=== PATIENT | female | born 1990 | race Caucasian/White ===

== ENCOUNTER 2018-02-05 08:48 | Emergency (ER) | payer SELFPAY ==
[~2018-02-05] VITALS: Ht 152.4 cm; Wt 70.8 kg
[2018-02-05 08:52] VITALS: BP 117/74
== END 2018-02-05 09:35 | disposition home or self-care (01) ==
LOC: ED 08:48
DX: J02.9 Acute pharyngitis, unspecified (principal); J98.01 Acute bronchospasm

== ENCOUNTER 2018-07-20 18:26 | Emergency (ER) | payer MEDICAID ==
[~2018-07-20] VITALS: Ht 152.4 cm; Wt 72.6 kg
[2018-07-20 18:34] VITALS: Ht 152.4 cm; Wt 72.6 kg
== END 2018-07-20 19:16 | disposition left against medical advice (07) ==
LOC: ED 18:26
DX: Z53.21 Procedure and treatment not carried out due to patient leaving prior to being seen by health care provider (principal)

== ENCOUNTER 2018-07-23 18:48 | Emergency (ER) | payer MEDICAID ==
[~2018-07-23] VITALS: Ht 152.4 cm; Wt 73.0 kg
[2018-07-23 19:25] VITALS: BP 131/79; Ht 152.4 cm; Wt 73.0 kg
== END 2018-07-23 20:44 | disposition home or self-care (01) ==
LOC: ED 18:48
DX: T78.40XA Allergy, unspecified, initial encounter (principal); X58.XXXA Exposure to other specified factors, initial encounter

== ENCOUNTER 2018-08-03 11:36 | Emergency (ER) | payer MEDICAID ==
[~2018-08-03] VITALS: Ht 152.4 cm; Wt 73.9 kg
[2018-08-03 12:12] VITALS: BP 125/80; Ht 152.4 cm; Wt 73.9 kg
== END 2018-08-03 13:09 | disposition home or self-care (01) ==
LOC: ED 11:36
DX: S80.861A Insect bite (nonvenomous), right lower leg, initial encounter (principal); L08.9 Local infection of the skin and subcutaneous tissue, unspecified; W57.XXXA Bitten or stung by nonvenomous insect and other nonvenomous arthropods, initial encounter; Y93.89 Activity, other specified; Y92.89 Other specified places as the place of occurrence of the external cause; Y99.8 Other external cause status